=== PATIENT | female | born 1990 | race Caucasian/White ===

== ENCOUNTER 2016-12-05 18:23 | Emergency (ER) | payer MEDICAID, OTHER ==
[~2016-12-05] VITALS: Ht 157.5 cm; Wt 106.5 kg
[2016-12-05 18:29] VITALS: Ht 157.5 cm; Wt 106.5 kg
--- NOTE | 2016-12-05 20:06 | ERD ---
ER Documentation Chief Complaint Date/Time DATE: 12/05/16 TIME: 20:05 Chief Complaint dizziness since morning HPI This is a 26-year-old female presenting to the emergency department complaining of dizziness that occurred earlier today while she was in the shower. Patient states that she felt lightheaded and dizzy and her vision went black for about 5 seconds however she did not fall or faint while she was in the shower. Patient denies any vision changes, vomiting, nausea, neuro deficits, chest pain , shortness of breath. She denies taking any medications. She states her last much appears a month and a half ago and it was normal, she states she is irregular ROS All systems reviewed and are negative except as per history of present illness. PMhx/Soc History of Surgery: Yes (C -SECTION X 1) Anesthesia Reaction: No Hx Neurological Disorder: No Hx Respiratory Disorders: No Hx Cardiac Disorders: No Hx Psychiatric Problems: No Hx Miscellaneous Medical Probl: No Hx Alcohol Use: Yes (SOCIALLY) Hx Substance Use: No Hx Tobacco Use: No Smoking Status: Never smoker Physical Exam Vitals Vital Signs Date Time Temp Pulse Resp B/P Pulse Ox O2 Delivery O2 Flow Rate FiO2 12/05/16 18:29 98.6 77 18 118/62 98 Physical Exam GENERAL: well-developed/well-nourished, in no apparent distress, non-toxic appearing HENT: NC/AT, bilateral tympanic membrane is normal with good cone of light, nares patent, oropharynx clear without exudates EYES: Conjunctiva normal, PERRLA, EOMI, no nystagmus noted NECK: Supple, no lymphadenopathy PULM: CTA bilaterally, no rales, rhonchi, or wheezing heard CV: Normal S1S2, RRR, good capillary refill GI: Soft, non-distended, normal bowel sounds, non-tender BACK: No midline tenderness, no masses, No CVAT EXT: No clubbing, cyanosis, or edema NEURO: Alert and orientated to person, place, and time. CN II-IIX intact. Gait and coordination were normal. Hand cellar pumper strength were equal and within normal limits SKIN: Intact, normal turgor PSYCH: Normal mood and mentation, patient denied SI Results 24 hrs Laboratory Tests Test 12/05/16 20:20 12/05/16 20:25 Bedside Glucose 87mg/dL Bedside Urine pH (LAB) 7.0 Bedside Urine Protein (LAB) Negative Bedside Urine Glucose (UA) Negative Bedside Urine Ketones (LAB) Negative Bedside Urine Blood Negative Bedside Urine Nitrite (LAB) Negative Bedside Urine Leukocyte Esterase (L Negative Procedures/MDM This is a 26-year-old female presenting to the emergency department complaining of an episode of dizziness while she was in the shower, patient did not have any fell but it resolved in 5 seconds. This is likely a vasovagal response, I doubt that patient has any cardiopulmonary, neurogenic or emergent causes. Patient appears well, she has stable vital signs. EKG was done did not show any evidence of STEMI or dysrhythmia. Accu-Chek was within normal limits. Patient had a normal urinalysis with negative urine test. I discussed the patient to follow-up with her primary care physician tomorrow. Discussed return to the ER for any worsening signs or symptoms patient understands and agrees with plan EKG: read and signed off by myself and Rate/Rhythm: [Normal Sinus Rhythm @ 74bpm] QRS, ST, T-waves: [No changes consistent w/ acute ischemia] Impression: [No evidence of ischemia or arrhythmia] Departure Diagnosis: Primary Impression: Dizziness Condition: Stable STEFANY PANG PA-C December 05, 2016 20:06
[2016-12-05 20:22] LABS: URINE BLOOD (Dip) POC Negative (NEGATIVE)
[2016-12-05 21:22] VITALS: BP 113/69; PULSE 74; RESP 16
== END 2016-12-05 21:23 | disposition home or self-care (01) ==
LOC: FTE 18:23
DX: R42 Dizziness and giddiness (principal)
CPT/HCPCS: 81003; 82962; 93005; Z7502